=== PATIENT | male | born 2005 | race Caucasian/White ===

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

== ENCOUNTER 2023-01-18 15:43 | Emergency (ER) | payer BC ==
[2023-01-18] MEDS ORDERED: predniSONE 20 MG TAB ONE (16:03)
[2023-01-18] MEDS ORDERED: predniSONE 10 MG TAB ONE (16:03)
[2023-01-18] MEDS ORDERED: Ipratropium/Albuterol 3 ML NEB ONE (16:03)
== END 2023-01-18 16:57 | disposition home or self-care (01) ==
LOC: MADERS 15:43
DX: J45.901 Unspecified asthma with (acute) exacerbation (principal); J06.9 Acute upper respiratory infection, unspecified; Z79.51 Long term (current) use of inhaled steroids
CPT/HCPCS: 71045; 87804; J7512; J7620

== ENCOUNTER 2024-04-07 06:32 | Emergency (ER) | payer BC ==
[2024-04-07] MEDS ORDERED: Ipratropium/Albuterol 3 ML NEB ONE (07:27)
[2024-04-07] MEDS ORDERED: predniSONE 20 MG TAB ONE (07:49)
== END 2024-04-07 08:00 | disposition home or self-care (01) ==
LOC: MADERS 06:32
DX: J45.21 Mild intermittent asthma with (acute) exacerbation (principal); Z79.51 Long term (current) use of inhaled steroids
CPT/HCPCS: 71045; J7512; J7620